=== PATIENT | male | born 1980 | race Caucasian/White ===

== ENCOUNTER → 2017-08-26 | Outpatient (REF) ==
[~2017-08-26] MED LIST: FLONASE NASAL S16 GM NS; MULTIPLE VITAMI1 CAP PO; NEXIUM 20MG20 MG PO
[2017-08-26 18:27] LABS: THYROID STIMULATING HORMONE 0.282 uIU/mL (0.465-4.680)
== END ==
LOC: ZLAB.WCH 17:34
PROVIDERS: Nurse Practitioner Family
DX: Z01.89 Encounter for other specified special examinations (principal)

== ENCOUNTER → 2020-07-04 | Outpatient (CLI) | payer OTHER ==
[~2020-07-04] VITALS: Ht 190.5 cm; Wt 104.0 kg
[~2020-07-04] MED LIST changes: +MULTIPLE VITAMI1 TA5 PO; +ZYRTEC ALLERGY10 MG PO
[2020-07-04 09:16] VITALS: BP 154/92; PULSE 79
[2020-07-04 10:07] VITALS: BP 130/85; PULSE 68
== END ==
LOC: COL.RAD 06-27 09:45
DX: E04.1 Nontoxic single thyroid nodule (principal)